=== PATIENT | female | born 1950 | race Caucasian/White ===

== ENCOUNTER → 2021-02-22 | Outpatient (CLI) | payer MEDICARE, OTHER ==
--- NOTE | 2021-02-22 12:11 | Diagnostic Imaging Report ---
INDICATION: Shoulder pain. COMPARISON: None. FINDINGS: Multiple radiographic views of the left shoulder were obtained. There is no fracture, dislocation, or other acute bony abnormality identified. The soft tissues appear unremarkable. No radiopaque foreign bodies identified. The visualized portions of the left lung are clear. IMPRESSION: No acute fractures or dislocations of the left shoulder. Dictated by: Dictated on workstation # [id number]
== END ==
LOC: RAD FS 11:18
PROVIDERS: ATTEND Nurse Practitioner Family
DX: M25.512 Pain in left shoulder (principal)
CPT/HCPCS: 73030

== ENCOUNTER 2023-06-06 06:25 | Outpatient (CLI) | payer MEDICARE, OTHER ==
[~2023-06-06] VITALS: Ht 165.1 cm; Wt 72.4 kg
[2023-06-06] MEDS ORDERED: ASPI-1238 PO (11:39)
[2023-06-06] MEDS ORDERED: CHOL200025 PO (11:39)
[2023-06-06] MEDS ORDERED: ZINC50TA11 PO (11:39)
[2023-06-06] MEDS ORDERED: CALC-823 PO (11:39)
[2023-06-06] MEDS ORDERED: SIMV10TA26 PO (11:39)
[2023-06-06] MEDS ORDERED: ASCO500C18 PO (11:39)
== END 2023-06-06 11:41 | disposition home or self-care (01) ==
LOC: PREOP 06:25
PROVIDERS: ATTEND Surgery
DX: Z01.818 Encounter for other preprocedural examination (principal)

== ENCOUNTER 2023-06-11 09:06 | Day surgery (SDC) | payer MEDICARE, OTHER ==
[~2023-06-11] VITALS: Ht 165.1 cm; Wt 72.4 kg
[~2023-06-11 09:06] MED LIST: ASCO500C18 PO; ASPI-1238 PO; CALC-823 PO; CHOL200025 PO; SIMV10TA26 PO; ZINC50TA11 PO
[2023-06-11 09:20] VITALS: BP 148/68
[2023-06-11] MEDS ORDERED: LACTATED RINGERS 1,000 ML IV STA (09:34)
--- NOTE | 2023-06-11 09:37 | Progress Note-Pre Operative ---
Pre-Operative Progress Note Date of Available H&P: May 31, 2023 Date H&P Reviewed: Jun 11, 2023 Time H&P Reviewed: 09:34 History & Physical: H&P Reviewed, Patient Examed, No changes noted Pre-Operative Diagnosis: screening MELISSA MCNALLY DO Jun 11, 2023 09:37
[2023-06-11] MEDS ORDERED: OMEG10005 PO (09:48)
[2023-06-11] MEDS ORDERED: CALC-140 PO (09:48)
[2023-06-11] MEDS ORDERED: UBID100C44 PO (09:48)
[2023-06-11] MEDS ORDERED: VIT1CAPS5 PO (09:48)
[2023-06-11] MEDS ORDERED: MULT-1029 PO (09:48)
[2023-06-11] MEDS ORDERED: CYAN250010 PO (09:48)
[2023-06-11] MEDS ORDERED: ASCO-281 PO (09:48)
[2023-06-11] MEDS ORDERED: proPOfol 200 MG/20 ML (DIPRIVAN) VIAL IV ONE ×2 (10:15→10:16)
[2023-06-11] MEDS ORDERED: LACTATED RINGERS 1,000 ML IV ONE (10:18)
--- NOTE | 2023-06-11 10:42 | Progress Note-Post Operative ---
Post-Operative Progess Note Surgeon (s)/Photostat Operator Helper (s) Surgeon MELISSA MCNALLY DO Photostat Operator Helper: none Pre-Operative Diagnosis screening Post-Operative Diagnosis Diverticula Int hemorrhoids Procedure & Operative Findings Date of Procedure 06/11/23 Procedure Performed/Findings Colonoscopy PROCEDURE NOTE: After informed consent was obtained, the patient was brought to the endoscopy suite, placed in bed in left lateral decubitus position. She was administered IV sedation by the EXPLOSION WELDER who then monitored her vitals the entire time, heart rate, blood pressure and pulse ox and the scope was inserted, pushed all the way to about 150 cm and pushed into the cecum, took a picture of appendiceal orifice and noted the ileocecal valve. Then slowly withdrew the scope insufflating to look circumferentially at the huston starting in the cecum, up the ascending colon to the hepatic flexure, then down the transverse colon, splenic flexure, into the descending colon down in the sigmoid and then into the rectal vault and retroflexed the scope. Took a picture of the internal hemorrhoids. During the procedure I noted multiple diverticula throughout the colon and took a picture of them. The patient tolerated the procedure. She was recovered in endoscopy suite. Recommended for repeat colonoscopy in 10 years. Anesthesia Type IV sedation by EXPLOSION WELDER Estimated Blood Loss Estimated blood loss (mL): none Specimens/Packing Specimens Removed none MELISSA MCNALLY DO Jun 11, 2023 10:42
[2023-06-11 10:43] VITALS: BP 134/63
--- NOTE | 2023-06-11 10:43 | Endoscopy Discharge Instruct ---
Endo Procedure/Findings Findings 1.: Diverticulosis 2.: Internal Hemorrhoids Discharge Instructions - Activity: You might feel a little sleepy until tomorrow. This is due to the medicine you received to relax you. Until tomorrow, you should: NOT drive a car, operate machinery or power tools. NOT drink any alcoholic beverages. NOT make any important decisions or sign importortant papers. Do not return to work until tomorrow, unless otherwise instructed. Resume previous activities tomorrow. Diet: Start by taking liquids. If you tolerate liquids, advance to solid food. 1.: Colonscopy in 10 years Notify Physician - If you experience excessive bleeding, unusual abdominal pain, fever, or chest pain, contact your doctor immediately. Follow-Up: Other Follow up in my office in one week MELISSA MCNALLY DO Jun 11, 2023 10:43
--- NOTE | 2023-06-11 11:49 | Anesthesia-General Post-Op ---
MAC Patient Condition Mental Status/LOC: Same as Preop Cardiovascular: Satisfactory Nausea/Vomiting: Absent Respiratory: Satisfactory Pain: Controlled Complications: Absent Post Op Complications Complications None Follow Up Care/Instructions Patient Instructions None needed. Anesthesiology Discharge Order Discharge Order Patient is doing well, no complaints, stable vital signs, no apparent adverse anesthesia problems. No complications reported per nursing. RADHA ROBERSON CRNA Jun 11, 2023 11:49
== END 2023-06-11 11:15 | disposition home or self-care (01) ==
LOC: ENDO 09:06
PROVIDERS: ATTEND Surgery
DX: Z12.11 Encounter for screening for malignant neoplasm of colon (principal); K57.30 Diverticulosis of large intestine without perforation or abscess without bleeding; K64.8 Other hemorrhoids